=== PATIENT | female | born 1975 | race Two or more races ===

== ENCOUNTER 2024-05-01 09:58 | Emergency (ER) | payer MEDICAID, OTHER ==
[~2024-05-01] VITALS: Ht 162.6 cm; Wt 75.5 kg
[2024-05-01 10:26] VITALS: BP 130/71; PULSE 76; RESP 18; TEMP 97.6; O2SAT 98
[2024-05-01] MEDS: KETOROLAC TROMETH 30 MG/ML 1ML VIAL IV ONE (11:47)
[2024-05-01] MEDS ORDERED: IBUP-1456 PO (11:53)
[2024-05-01] MEDS ORDERED: METH-1182 PO (11:53)
== END 2024-05-01 12:02 | disposition home or self-care (01) ==
LOC: ER 09:58 → EDBD 09:58 → ER 12:02
DX: S39.012A Strain of muscle, fascia and tendon of lower back, initial encounter (principal); M54.41 Lumbago with sciatica, right side; Z79.899 Other long term (current) drug therapy; X50.0XXA Overexertion from strenuous movement or load, initial encounter; Y93.89 Activity, other specified; Y92.89 Other specified places as the place of occurrence of the external cause; Y99.8 Other external cause status
CPT/HCPCS: 72100; 99283; J1885